=== PATIENT | female | born 1970 | race Caucasian/White ===

== ENCOUNTER 2016-06-25 06:26 | Observation (INO) | payer OTHER ==
[2016-06-12 11:00] VITALS: BMI 56.0
--- NOTE | 2016-06-12 11:40 | PAT Medication Instructions ---
Service Date Jun 12, 2016. Current Home Medication List Albuterol Soln (Proventil 0.083% 2.5MG/3ML), 2.5 MG INH Q4H PRN for Wheezing Albuterol Sulfate (Proair Hfa), 2 PUFFS INH Q4H PRN for Wheezing Aspirin (Aspirin 81), 81 MG PO NOON Azelastine Hcl-Fluticasone Pro (Dymista), 2 SPRY MORENO BID Cranberry-Vitamin C-Vitamin E (Cranberry), 8,400 MG PO NOON Docusate Sodium (Docusate Sodium), 100 MG PO QAM Ferrous Sulfate (Kp Ferrous Sulfate), 325 MG PO QPM Fexofenadine Hcl (Rosi), 180 MG PO HS Fluticasone Prop/Salmeterol (Advair Diskus 250-50 Mcg/Dose), 1 PUFFS INH BID Fluticasone Propionate (Nasal) (Flonase Allergy Relief), 2 SPRAY MORENO BID Ipratropium [place] (Nasal) (Atrovent Nasal [place]), 2 SPRY MORENO TID PRN for RUNNY NOSE Metformin HCl (Metformin HCl), 500 MG PO QAM Metoprolol Succ (Toprol Xl) (Toprol-Xl), 75 MG PO QAM Montelukast Sodium (Singulair), 10 MG PO HS Omeprazole (Omeprazole), 20 MG PO QAM Propafenone Hcl (Propafenone Hcl), 150 MG PO Q8H [Z Сергей], 1 TAB PO QAM Medication Instructions For Your Scheduled Surgery Aspirin (Aspirin 81), 81 MG PO NOON CHECK WITH DR RAHMAN FOR INSTRUCTIONS) Metoprolol Succ (Toprol Xl) (Toprol-Xl), 75 MG PO QAM (CHECK WITH DR RAHMAN FOR INSTRUCTIONS) Propafenone Hcl (Propafenone Hcl), 150 MG PO Q8H (CHECK WITH DR RAHMAN FOR INSTRUCTIONS) Z Сергей 1 TAB PO QAM (currently on for tooth abscess- will finish 06/14/16) - Hold the following medications 10 days prior to surgery: Cranberry-Vitamin C-Vitamin E (Cranberry), 8,400 MG PO NOON - Hold the following medications 48 hours prior to surgery: Metformin HCl (Metformin HCl), 500 MG PO QAM - Hold the following medications the morning of surgery: Docusate Sodium (Docusate Sodium), 100 MG PO QAM - Take the following medications the morning of surgery with a sip of water: Omeprazole (Omeprazole), 20 MG PO QAM Fluticasone Prop/Salmeterol (Advair Diskus 250-50 Mcg/Dose), 1 PUFFS INH BID Fluticasone Propionate (Nasal) (Flonase Allergy Relief), 2 SPRAY MORENO BID Ipratropium [place] (Nasal) (Atrovent Nasal [place]), 2 SPRY MORENO TID PRN for RUNNY NOSE Azelastine Hcl-Fluticasone Pro (Dymista), 2 SPRY MORENO BID Albuterol Soln (Proventil 0.083% 2.5MG/3ML), 2.5 MG INH Q4H PRN for Wheezing Albuterol Sulfate (Proair Hfa), 2 PUFFS INH Q4H PRN for Wheezing (BRING WITH YOU TO HOSPITAL ON DAY OF SURGERY) - Take the following medications as scheduled the night before surgery: Montelukast Sodium (Singulair), 10 MG PO HS Fluticasone Prop/Salmeterol (Advair Diskus 250-50 Mcg/Dose), 1 PUFFS INH BID Fluticasone Propionate (Nasal) (Flonase Allergy Relief), 2 SPRAY MORENO BID Ipratropium [place] (Nasal) (Atrovent Nasal [place]), 2 SPRY MORENO TID PRN for RUNNY NOSE Fexofenadine Hcl (Rosi), 180 MG PO HS Ferrous Sulfate (Kp Ferrous Sulfate), 325 MG PO QPM Azelastine Hcl-Fluticasone Pro (Dymista), 2 SPRY MORENO BID Albuterol Soln (Proventil 0.083% 2.5MG/3ML), 2.5 MG INH Q4H PRN for Wheezing Albuterol Sulfate (Proair Hfa), 2 PUFFS INH Q4H PRN for Wheezing If you have any questions please call us at [phone] or [phone] ( Maria Guadalupe) or [phone]
[2016-06-12 12:15] LABS: COMPLETE YES; EOS % 0.2 %; HEMATOCRIT 32.8 % (37-47); LYMPH % 33.8 %; LYMPH ABS # 1.54 K/uL (1.2-3.4); MEAN CELL VOLUME 80.8 fL (80-100); MEAN CORPUSCULAR HEMOGLOBIN 26.1 pg (25-34); MEAN CORPUSCULAR HGB CONC 32.3 g/dl (32-36); MEAN PLATELET VOLUME 9.1 fL (7.4-10.4); MONO % 5.9 %; NEUT % 60.1 %; PLATELET COUNT 213 K/uL (130-400); RED BLOOD COUNT 4.06 M/uL (4.2-5.4); WHITE BLOOD COUNT 4.56 K/uL (4.8-10.8)
[2016-06-12 12:37] LABS: BUN/CREATININE RATIO 12.5 (10-20); CALCIUM 8.4 mg/dl (8.5-10.1); CREATININE 0.71 mg/dl (0.60-1.20); POTASSIUM 3.9 mmol/L (3.5-5.1)
[~2016-06-25] VITALS: Ht 162.6 cm; Wt 153.2 kg
[~2016-06-25 06:26] MED LIST: ADVIN25050 INH; ALBU0.08 INH; ALBU1AER9 INH; ASPI-435 PO; AZEL30SP NAE; CRAN1CAP15 PO; DOCU100C31 PO; FERR1TAB13 PO; FEXO1TAB46 PO; FLUT0.15 NAE; GLC500 PO; IPRA0.037 NAE; LACTATED RINGER'S 1000ML 1,000 ML IV SCH; METO25TA3 PO; MONT1TAB3 PO; OMEP20TA PO; PROP150T PO; Z PAK PO
[2016-06-25] MEDS ORDERED: FEXO1TAB58 PO (06:53)
[2016-06-25 07:00] VITALS: BP 155/68; PULSE 81; TEMP 36.9; O2SAT 97; BMI 56.0
[2016-06-25] MEDS ORDERED: PROPOFOL IV EMULSION 10 MG/ML 100 ML VIAL IV ONE ×2 (07:31→11:23)
[2016-06-25] MEDS ORDERED: MIDAZOLAM HCL 1 MG/ML 2ML VIAL ONE ×2 (07:46)
[2016-06-25] MEDS ORDERED: FENTANYL CITRATE INJ 50 MCG/1 ML 2 ML VIAL ONE ×3 (07:46→10:44)
--- NOTE | 2016-06-25 08:16 | History & Physical Bridge Note ---
H&P Re-Evaluation Bridge Note: I have examined the patient, reviewed the History & Physical and in the interval since the performance of the History & Physical I have noted the following changes of clinical significance: After I saw pt in the office she called back to say she would like to proceed with EPS and possible ablation.
[2016-06-25] MEDS ORDERED: PROPOFOL IV EMULSION 10 MG/ML 20 ML VIAL IV ONE (09:19)
[2016-06-25] MEDS ORDERED: LIDOCAINE HCL 2% 2 ML VIAL (20MG/ML) ONE (09:19)
[2016-06-25] MEDS ORDERED: ISOPROTERENOL 200 MCG / 50ML D5W IV ONE (10:10)
[2016-06-25] MEDS ORDERED: HEPARIN SOD (PORCINE) 1000 UNIT/ML 10 ML VIAL ONE (10:42)
[2016-06-25] MEDS ORDERED: [UNRECOGNIZED DRUG - OTHER] PO SCH (12:15)
[2016-06-25] MEDS ORDERED: ALBUTEROL 0.083% NEBU SOLN 3 ML VIAL INH PRN (12:15)
[2016-06-25] MEDS ORDERED: IPRATROPIUM BROMIDE NASAL SPRAY 0.06% 15ML NAE PRN (12:15)
[2016-06-25] MEDS ORDERED: ALBUTEROL HFA 8 GM INHALER INH PRN (12:15)
[2016-06-25] MEDS ORDERED: ACETAMINOPHEN 325 MG TAB PO PRN (12:15)
[2016-06-25 13:01] VITALS: BP 122/84; PULSE 95; TEMP 36.5; O2SAT 95; Ht 162.6 cm; Wt 153.2 kg
[2016-06-25] MEDS ORDERED: EpHEDrine SULFATE INJ 50 MG/ML AMP IV PRN (13:15)
[2016-06-25] MEDS ORDERED: ATROPINE SULFATE 0.1 MG/ML 5ML SYR IV PRN (13:15)
--- NOTE | 2016-06-25 13:16 | Anesthesiology Progress Note ---
Anesthesia Post Op Note Date & Time Jun 25, 2016 at 13:17 Vital Signs Pain Intensity: 0.0 Vital Signs Past 12 Hours Date Time Temp Pulse Resp B/P Pulse Ox O2 Delivery O2 Flow Rate FiO2 06/25/16 13:01 36.5 95 16 122/84 95 Room Air 06/25/16 12:40 65 16 129/74 96 Nasal Cannula 2 06/25/16 12:20 65 16 124/78 96 Nasal Cannula 2 06/25/16 07:00 36.9 81 18 155/68 97 Room Air Notes Mental Status: alert / awake / arousable, participated in evaluation Pt Amnestic to Procedure: Yes Nausea / Vomiting: adequately controlled Pain: adequately controlled Airway Patency, RR, SpO2: stable & adequate BP & HR: stable & adequate Hydration State: stable & adequate Anesthetic Complications: no major complications apparent
[2016-06-25] MEDS ORDERED: ONDANSETRON INJ 2 MG/ML 2 ML VIAL ONE (13:24)
[2016-06-25] MEDS ORDERED: NURSING VERBAL MED ORDER ONE (13:30)
[2016-06-25] MEDS ORDERED: ONDANSETRON INJ 2 MG/ML 2 ML VIAL IV PRN (14:00)
[2016-06-25] MEDS: PROPAFENONE HCL 150 MG TAB PO SCH ×2 (15:08→22:57)
--- NOTE | 2016-06-25 15:55 | Discharge Instructions ---
Discharge Instructions Admission Reason for Admission: Atrial Flutter Discharge Discharge Diagnosis / Problem: atrial flutter Discharge Goals Goal(s): Improve function Activity Recommendations Activity Limitations: as noted below Lifting Limitations: no more than 10 pounds Shower/Bathe: tomorrow Driving or Machine Use: resume 1 day after discharge . Current Hospital Diet Patient's current hospital diet: AHA Diet (Heart Healthy) Discharge Diet Recommended Diet: AHA Diet (Heart Healthy) Procedures Procedures Performed: EPS, radiofrequency ablation of cavotricuspid isthmus Pending Studies Studies pending at discharge: no Medical Emergencies . Who to Call and When: Medical Emergencies: If at any time you feel your situation is an emergency, please call 911 immediately. . Non-Emergent Contact Non-Emergency issues call your: Accounts Payable Clerk . . "Provider Documentation" section prepared by Maria D Plummer. VTE Core Measure Inpt VTE Proph given/why not?: Other Anticoagulation, Treatment not indicated
--- NOTE | 2016-06-25 15:59 | Discharge Summary ---
Discharge Summary Admission Date: Jun 25, 2016 at 13:09 Discharge Date: Jun 26, 2016 Discharge Disposition: Home Principal Diagnosis: atrial flutter Secondary Diagnoses/Problems: pAF on Rythmol and ASA DM Obesity Asthma Procedures: eps, isoprel infusion, radiofrequency ablation of cavotricuspid isthmus, 3d mapping of cti and his bundle Medication Reconciliation Continued Medications: Albuterol Soln (Proventil 0.083% 2.5MG/3ML) Nebu 2.5 MG INH Q4H PRN for Wheezing, EA Albuterol Sulfate (Proair Hfa) 108 Mcg/ Aer 2 PUFFS INH Q4H PRN for Wheezing Aspirin (Aspirin 81) 81 Mg Tab 81 MG PO NOON Azelastine Hcl-Fluticasone Pro (Dymista) 1 Spr Spr 2 SPRY MORENO BID, GM Cranberry-Vitamin C-Vitamin E (Cranberry) 1 Cap Cap 8400 MG PO NOON Docusate Sodium (Docusate Sodium) 100 Mg Cap 100 MG PO QAM, CAP Ferrous Sulfate (Kp Ferrous Sulfate) 325 Mg Tab 325 MG PO QPM, TAB 3 Refills Fexofenadine Hcl (Rosi) 180 Mg Tab 180 MG PO HS, TAB Fexofenadine-Pseudoephedrine (Rosi-D 24 Hour Allergy) 1 Tab Tab 1 TAB PO DAILY for 30 Days, #30 TAB 2 Refills Fluticasone Prop/Salmeterol (Advair Diskus 250-50 Mcg/Dose) 14 Puff/1 Inhaler Aerp 1 PUFFS INH BID Fluticasone Propionate (Nasal) (Flonase Allergy Relief) 50 Mcg/Act Spr 2 SPRAY MORENO BID Ipratropium [place] (Nasal) (Atrovent Nasal [place]) 0.06 % Jayla 2 SPRY MORENO TID PRN for RUNNY NOSE, ML Metformin HCl (Metformin HCl) 500 Mg Tab 500 MG PO QAM Metoprolol Succ (Toprol Xl) (Toprol-Xl) 25 Mg Tabcr 75 MG PO QAM, #30 TAB Montelukast Sodium (Singulair) 10 Mg Tab 10 MG PO HS, TAB Omeprazole (Omeprazole) 20 Mg Tab 20 MG PO QAM, TAB Propafenone Hcl (Propafenone Hcl) 150 Mg Tab 150 MG PO Q8H Admission Information Physical Exam (per Admitting): aaox3, nad supple, no jvd nrl s1/s2 no murmur cta b/l no w/r/r soft nt/nd no edema b/l no focal deficits Hospital Course Pt admitted for elective EPS with possible ablation. She underwent procedure without any complications-had an empiric cavotricuspid isthmus ablation. She had an limited echocardiogram performed to assess for PFO as during catheter placement in the EP lab it appeared that anatomically there is one present-the TTE did not reveal any but significant PFO. She was discharged home. Total time spent on discharge = This includes examination of the patient, discharge planning, medication reconciliation, and communication with other providers. Discharge Instructions ACTIVITY RECOMMENDATIONS: It is common to feel weak and fatigue for a few days. * Do not drive or operate any motorized equipment for the next 1 day. * Limit stair usage (2 or 3 trips a day only) for the next three days. * Do not lift anything heavier than 10 pounds for the next seven days. * Do not engage in vigorous exercise or any sports for the next five days. * You may shower the day after your procedure, but do not immerse the area for three days. Cleanse the site gently with soap and water. SPECIAL CARE INSTRUCTIONS: * You may replace the pressure dressing or band-aid the morning after the procedure. * After your procedure, it is normal to have a small bruise or small lump at the site. Examine your site daily for any change in the bruise or lump, redness, swelling, drainage or numbness. Notify your doctor if any change. BLEEDING: * If there is a small amount of bleeding at the site, lie down and apply firm pressure with a clean cloth for ten minutes. When the bleeding stops, lie quietly keeping the procedure limb straight for six hours. Notify your doctor as soon as possible. * If the bleeding does not stop after ten minutes or if there is a large amount of bleeding or spurting, call 911 immediately. Continue to lie down and hold firm pressure until help arrives. SKIN IRRITATION: * You may experience some redness and/or swelling in the area where radiation was administered. If any skin irritation occurs, please contact your family physician. FOLLOW UP VISIT: Keep any scheduled doctor appointments.
[2016-06-25 16:00] VITALS: O2SAT 96
[2016-06-25 16:51] VITALS: BP 152/96; PULSE 92; TEMP 37; O2SAT 96
[2016-06-25 19:19] VITALS: BP 128/81; PULSE 84; TEMP 37; O2SAT 97
[2016-06-25 20:00] VITALS: O2SAT 97
[2016-06-25] MEDS: FLUTICASONE/SALMETEROL 250/50 (ADVAIR) 14 PUFF/1 INHALER INH SCH (20:16)
[2016-06-25] MEDS: FLUTICASONE PROPIONATE NA SPR 16 GM BTL NAE SCH (20:17)
[2016-06-25] MEDS ORDERED: MONTELUKAST SOD 10 MG TAB PO SCH (21:00)
[2016-06-25] MEDS ORDERED: FEXOFENADINE HCL 180 MG TAB PO SCH (21:00)
[2016-06-25] MEDS ORDERED: FERROUS SULFATE 325 MG TAB PO SCH (21:00)
[2016-06-26 00:01] VITALS: O2SAT 97
[2016-06-26 00:05] VITALS: BP 137/78; PULSE 87; TEMP 36.8; O2SAT 96
--- NOTE | 2016-06-26 01:43 | OPERATIVE REPORT ---
DATE OF OPERATION: 06/25/2016 PREOPERATIVE DIAGNOSIS: Supraventricular tachycardia, probably in atrial flutter with 2:1 conduction. POSTOPERATIVE DIAGNOSIS: Same. Probable patent foramen ovale. PROCEDURE: Electrophysiology study, isuprel drug challenge infusion, 3D mapping of the His bundle and the cavotricuspid isthmus, radiofrequency ablation of the cavotricuspid isthmus and cardioversion. SURGEON: Dr. Maria D Plummer. APPLICATIONS PACKAGER: None. ANESTHESIA: Monitored anesthetic care given via anesthesiology, a total of 2 mg of Versed, 300 mcg of fentanyl, 2500 mg of propofol, start time 9:03, end time 12:00. IV FLUIDS: 350 mL. BLOOD LOSS: Less than 5 mL. CONDITION: Stable. COMPLICATIONS: None. URINE OUTPUT: Not applicable. SPECIMENS: None. FINDINGS: See below. DRAINS: None. INDICATIONS: This is a 45-year-old female, who has a past medical history of paroxysmal atrial fibrillation, hypertension. She is on propafenone as well as some beta-moris, metoprolol, for her atrial fibrillation; however, she did end up in [facility] a few months ago, secondary to significant palpitations and found to be in an SVT, probably an atrial flutter, greater than a 2:1 conduction and was recommended an electrophysiology study. CONSENT: Consent was obtained prior to patient going into the electrophysiology lab. The patient was informed of risks, benefits and alternatives to the procedure. Risks include, but not limited to, sudden cardiac , cardiac arrhythmias, cerebrovascular accident, myocardial infarction, injury to the blood vessels, chamber of the heart or the [place] electrical system, where she would need a permanent pacemaker, bleeding and infection. The patient understood these risks and agreed to the procedure as planned. Informed consent was obtained. DESCRIPTION OF THE PROCEDURE: The patient was brought into the electrophysiology lab in a fasting state. She was connected to a continuous air sampling and monitoring. A timeout was performed to ensure patient's identity and procedure correctly. The patient was prepped and draped over the bilateral groins in a normal surgical standard fashion. She received monitored anesthetic care throughout the case for her comfort level, administered via anesthesiology. [place] precautions were maintained throughout the procedure. A 10 mL of 1% lidocaine, bupivacaine mixture were given in the bilateral groins. Using the modified Seldinger technique, venous access was obtained in the following manner: The left femoral vein had a 6-Namibian sheath followed by a Joseluis quad diagnostic catheter positioned into the right ventricular apex. A 7-Namibian sheath followed by a Cournand F quadripolar catheter positioned in the His bundle region. A 7-Namibian sheath followed by a Thomas polar Biosense DF curve coronary sinus catheter was initially thought to be positioned into the coronary sinus. However, it looks like it actually went through a PFO into the left atrium and inferior pulmonary vein; it was removed, but did induce an atrial flutter and then degenerated into atrial fibrillation when it was out in the pulmonary vein. Ultimately, I could not get it into the coronary sinus and so, we did not use the catheter and the catheter was exchanged and a Halo 20 Pole catheter was positioned into the right atrium. The right femoral vein: A 6-Namibian sheath with a Joseluis quadripolar catheter positioned in the high right atrium. First, a 6-Namibian sheath, which was later swapped out for an SR0 sheath followed by the SuncoreTouch Biosense DF curve 4 mm ThermoCool ablation catheter. Electrophysiology study was performed with the following findings: Sinus cycle length 632, AH 86 milliseconds, HV 58 milliseconds, ME interval was 156 milliseconds, QRS 78 milliseconds, QT 338 milliseconds. With a high right atrial burst pacing, the AV Wenckebach was found to be 260 milliseconds. With high right atrium extrastimuli, the atrial ERP was found to be 500/200 and 400/220 with the AV node ERP less than or equal to the atrial. With right ventricular extrastimuli, the right ventricular ERP was found to be 500/230 and 400/220. A flutter at a cycle length of 194 milliseconds was induced, but this was when the coronary sinus catheter was probably positioned out into the left atrium into the pulmonary vein and when we were pacing at 400/220 from the high right atrium, we induced an atrial flutter which quickly decelerated to an atrial fibrillation. We ultimately had to do a cardioversion at 200 joules to retain sinus rhythm and then, the Thomas polar coronary sinus catheter was just removed from the heart altogether and the Halo catheter was positioned into the high right atrium. Once the Halo was positioned, we did atrial burst pacing down to 200 and we did atrial extrastimuli doubles without a further inducible atrial flutter. So, Isuprel at 2 was started. Once we had an adequate Isuprel response, the electrophysiology study was done with the following findings: Sinus cycle length 508 milliseconds, AH 100 milliseconds, HV 40 milliseconds, AV Wenckebach was 240 milliseconds, we gave up to triples from the high right atrium as well as burst pacing from the high right atrium down to 200, but I was not able to induce any sustained flutter, but we did do an empiric cavotricuspid isthmus line, as it appeared that the patient did have some flutter. To set up for the empiric cavotricuspid isthmus line, the 6-Namibian sheath in the right femoral vein was swapped out for an SR0 and then the [employer] irrigated ablation catheter was positioned into the heart. We mapped the His bundle region and then the cavotricuspid isthmus with 3D mapping. Then, the ablation catheter was positioned on the cavotricuspid isthmus near the tricuspid valve and a series of radiofrequency ablations were given, 1 minute in duration each at [address] to the IVC. We then checked for a block by positioning the ablation catheter medial to our line, we paced medial from the ablation catheter and measured across to the lateral atrial wall, where the Halo catheter was positioned and the duration took was 124 milliseconds. Then, we paced laterally from the Halo catheter and measured it to the ablation catheter, which was medial to our line and the duration took 134 milliseconds. A post-ablation electrophysiology study was performed during our 30-minute waiting period with the following findings: Sinus cycle length of 682 milliseconds, AH 94 milliseconds, HV 66 milliseconds, ME interval 172 milliseconds, QRS 72 milliseconds and QT 338 milliseconds, AV Wenckebach 280 milliseconds. Atrial ERP was 400/220 and the AV node ERP was less than or equal to the atrial and right ventricular ERP was 400/230. After a 30-minute waiting period, we rechecked to see that we still had bidirectional block and again pacing from medial and measuring to the lateral, it took 124 milliseconds, pacing [id number] then took 134 milliseconds. All the catheters were removed from the heart and the sheaths were pulled manually and manual compression was used to establish hemostasis. CONCLUSION: 1. Successful bidirectional block of the cavotricuspid isthmus. A successful radiofrequency ablation with creation of bidirectional block over the cavotricuspid isthmus. 2. Normal AV jeb function. 3. Possible patent foramen ovale. PLAN: Monitor patient overnight, a 12-lead ECG. She is still to continue her propafenone and metoprolol, as she does have atrial fibrillation. We will get a limited echo with a bubble study to see if she really does have a PFO, as my assumption is I think she does. Continue aspirin. She should also continue the rest of her other home medicines and follow up in my [place] office in 1 month. I attest to the content of the Intraoperative Record and any orders documented therein. Any exceptio ns are noted below.
[2016-06-26 04:40] VITALS: BP 118/70; PULSE 90; TEMP 36.8; O2SAT 93
[2016-06-26] MEDS: PROPAFENONE HCL 150 MG TAB PO SCH ×2 (05:48→13:35)
[2016-06-26 08:07] VITALS: BP 136/80; PULSE 84; TEMP 36.9; O2SAT 94
[2016-06-26] MEDS: FLUTICASONE PROPIONATE NA SPR 16 GM BTL NAE SCH (08:22)
[2016-06-26] MEDS: FLUTICASONE/SALMETEROL 250/50 (ADVAIR) 14 PUFF/1 INHALER INH SCH (08:23)
[2016-06-26] MEDS ORDERED: DOCUSATE SODIUM 100 MG CAP PO SCH (09:00)
[2016-06-26] MEDS ORDERED: ASPIRIN 81 MG ECTAB PO SCH (09:00)
[2016-06-26] MEDS ORDERED: METFORMIN HCL 500 MG TAB PO SCH (09:00)
[2016-06-26] MEDS ORDERED: METOPROLOL SUCC 25MG EXT REL TAB PO SCH (09:00)
[2016-06-26] MEDS ORDERED: PANTOprazole SOD 40 MG TAB PO SCH (09:00)
[2016-06-26 11:48] VITALS: BP 128/79; PULSE 78; TEMP 36.7; O2SAT 95
--- NOTE | 2016-06-26 11:56 | ECHOCARDIOGRAM REPORT ---
*NOTICE TO RECEIVING REPUBLICAN AGENCY This information is strictly Confidential and protected under [place] law. [place] law prohibits you from making any further disclosure of this information unless further disclosure is expressly permitted by the written consent of the person to whom it pertains or is authorized by law. A general authorization for the release of medical or other information is not sufficient for this purpose. Hospital accepts no responsibility if the information is made available to any other person, INCLUDING THE PATIENT. Interpretation Summary * Name: JUS ABDUL Study Date: 06/26/2016 10:38 AM BP: 136/80 mmHg * Patient Location: C.2T\S\S242\S\2 HR: 80 * : 1970 (M/d/yyyy) Gender: Female Height: 65 in * Age: 45 yrs Ethnicity: CA Weight: 337 lb * Ordering Physician: Maria D Plummer * Referring Physician: Maria D Plummer D.O. * Performed By: Catarina Bowman RCS * * Reason For Study: LIMITED - ASSESS FOR PFO / BUBBLE STUDY * BSA: 2.5 m2 * -- Conclusions -- * The interatrial septum is intact with no evidence for an atrial septal defect. * Injection of contrast documented no interatrial shunt. Procedure Details * Limited views were obtained. * A saline contrast injection was performed to assess for cardiac shunting. * The injection was performed through an intravenous line in the right arm. * The attending nurse who injected the saline contrast was TYRESE SMITH [facility], RN. * A total of 30 cc of agitated saline was given. Left Ventricle * The left ventricle is borderline dilated. * There is normal left ventricular wall thickness. * Ejection Fraction = 50-55%. Right Ventricle * The right ventricle is grossly normal size. * The right ventricular systolic function is normal. Atria * The left atrial size is normal. * Right atrium not well visualized. * The interatrial septum is intact with no evidence for an atrial septal defect. * Injection of contrast documented no interatrial shunt. Mitral Valve * The mitral valve is grossly normal. Tricuspid Valve * The tricuspid valve is not well visualized, but is grossly normal. Aortic Valve * The aortic valve is normal in structure and function. Pulmonic Valve * The pulmonic valve is not well visualized. Pericardium/Pleural * There is no pericardial effusion. MMode 2D Measurements and Calculations IVSd 0.92 cm IVSs 1.3 cm LVIDd 5.4 cm LVIDs 3.9 cm LVPWd 1.2 cm LVPWs 1.3 cm IVS/LVPW 0.74 FS 27.5 % EDV(Teich) 140.1 ml ESV(Teich) 66.0 ml EF(Teich) 52.9 % EDV(cubed) 155.7 ml ESV(cubed) 59.4 ml EF(cubed) 61.9 % % IVS thick 46.3 % % LVPW thick 7.5 % LV mass(C)d 226.9 grams LV mass(C)dI 91.9 grams/m\S\2 LV mass(C)s 187.6 grams LV mass(C)sI 76.0 grams/m\S\2 SV(Teich) 74.1 ml SI(Teich) 30.0 ml/m\S\2 SV(cubed) 96.3 ml SI(cubed) 39.0 ml/m\S\2 LVOT diam 2.0 cm LVOT area 3.0 cm\S\2 LVAd ap4 34.0 cm\S\2 LVLd ap4 8.1 cm EDV(MOD-sp4) 119.2 ml EDV(sp4-el) 121.3 ml LVAs ap4 21.0 cm\S\2 LVLs ap4 6.5 cm ESV(MOD-sp4) 56.0 ml ESV(sp4-el) 57.2 ml EF(MOD-sp4) 53.0 % EF(sp4-el) 52.9 % LVAd ap2 29.6 cm\S\2 LVLd ap2 7.7 cm EDV(MOD-sp2) 98.4 ml EDV(sp2-el) 96.8 ml LVAs ap2 19.1 cm\S\2 LVLs ap2 6.6 cm ESV(MOD-sp2) 50.1 ml ESV(sp2-el) 46.7 ml EF(MOD-sp2) 49.1 % EF(sp2-el) 51.8 % LVLd %diff -5.02 % EDV(MOD-bp) 110.5 ml LVLs %diff 1.1 % ESV(MOD-bp) 52.1 ml EF(MOD-bp) 52.8 % SV(MOD-sp4) 63.3 ml SI(MOD-sp4) 25.6 ml/m\S\2 SV(MOD-sp2) 48.3 ml SI(MOD-sp2) 19.6 ml/m\S\2 SV(MOD-bp) 58.4 ml SI(MOD-bp) 23.6 ml/m\S\2 SV(sp4-el) 64.1 ml SI(sp4-el) 26.0 ml/m\S\2 SV(sp2-el) 50.1 ml SI(sp2-el) 20.3 ml/m\S\2
--- NOTE | 2016-06-26 13:21 | Cardiology Follow-Up ---
Subjective Subjective Date of Service: Jun 26, 2016. Pt evaluation today including: conversation w/ patient, physical exam, chart review, lab review, review of studies Pain: none Problem List Medical Problems: (1) Failure of outpatient treatment Status: Acute (2) Pyelonephritis Status: Acute Review of Systems Constitutional: No fatigue Respiratory: No dyspnea at rest, No shortness of breath Cardiac: No chest pain, No edema, No palpitations Abdomen: No diarrhea, No nausea Female : + urinary frequency Endo: No fatigue Objective Vital Signs Last Vital Signs Documentation Date Time Temp Pulse Resp B/P Pulse Ox O2 Delivery O2 Flow Rate FiO2 06/26/16 12:00 Room Air 06/26/16 11:48 36.7 78 18 128/79 95 06/25/16 12:40 2 Physical Exam: General Appearance: WD/WN, no apparent distress, + obese Eyes: bilateral eyes EOMI, bilateral eyes PERRL Neck: supple Respiratory/Chest: lungs clear, normal breath sounds Cardiovascular: regular rate, rhythm, no edema, no murmur Abdomen: soft (b/l groins soft no hematoma) Neurologic/Psychiatric: alert, normal mood/affect, oriented x 3 Skin: normal color, warm/dry, no rash Assessment and Plan Impression: 1. Atrial flutter s/p CTI ablation 06/25/2016 2. pAF on rhytmol and ASA [id number] 1 for female 3. Obesity 4. Recurrent UTI 5. Asthma Plan: -Ok for discharge home today -Echocardiogram did not reveal any PFO but could be limited study due to patient 's body habitus -Continue home medications -F/u in my office in 1 month Discharge planning: home Medications: Medications Administered Medications (Trade) Dose Ordered Sig/Filippo Route Start Time Stop Time Status Last Admin Dose Admin Lactated Ringer's (Lr 1000ml) 1,000 ml @ 15 mls/hr Q24H IV 06/25/16 06:00 06/26/16 05:59 DC 06/25/16 07:20 15 MLS/HR Isoproterenol HCl (Isoproterenol / D5W) 200 mcg STK-MED ONCE IV 06/25/16 10:10 06/25/16 10:11 DC 06/25/16 10:10 200 MCG Aspirin (Ecotrin Tab) 81 mg DAILY PO 06/26/16 09:00 07/26/16 08:59 06/26/16 08:24 81 MG Docusate Sodium (coLACE CAP) 100 mg QAM PO 06/26/16 09:00 07/26/16 08:59 06/26/16 08:22 100 MG Fexofenadine HCl (Rosi Tab) 180 mg HS PO 06/25/16 21:00 07/25/16 20:59 06/25/16 20:17 180 MG Salmeterol Xinafoate/ Fluticasone (Advair Diskus 250/50 Inh) 1 puff BID INH 06/25/16 21:00 07/25/16 20:59 06/26/16 08:23 1 PUFF Fluticasone Propionate (Flonase Nasal [place]) 1 sprays BID MORENO 06/25/16 21:00 07/25/16 20:59 06/26/16 08:22 1 SPRAYS Metformin HCl (Glucophage Tab) 500 mg QAM PO 06/26/16 09:00 07/26/16 08:59 06/26/16 08:24 500 MG Metoprolol Succinate (Toprol Xl Tab) 75 mg QAM PO 06/26/16 09:00 07/26/16 08:59 06/26/16 08:24 75 MG Montelukast Sodium (Singulair Tab) 10 mg HS PO 06/25/16 21:00 07/25/16 20:59 06/25/16 20:18 10 MG Propafenone HCl (Rythmol Tab) 150 mg Q8 PO 06/25/16 14:00 07/25/16 13:59 06/26/16 05:48 150 MG Ferrous Sulfate (Feosol Tab) 325 mg QPM PO 06/25/16 21:00 07/25/16 20:59 06/25/16 20:18 325 MG Pantoprazole Sodium (Protonix Tab) 40 mg QAM PO 06/26/16 09:00 07/26/16 08:59 06/26/16 08:22 40 MG Lab Results: Telemetry: SR/ST ECG: SR Echocardiogram: No PFO appreciated
[2016-06-26 13:27] VITALS: BP 128/79; PULSE 78; TEMP 36.7; O2SAT 95
== END 2016-06-26 13:59 | disposition home or self-care (01) ==
LOC: C.ACU 06:26 → C.2T 13:09
PROVIDERS: ADMIT Internal Medicine; ATTEND Internal Medicine
DX: I47.1 Supraventricular tachycardia (principal); I48.92 Unspecified atrial flutter; I10 Essential (primary) hypertension; J45.909 Unspecified asthma, uncomplicated; Z79.82 Long term (current) use of aspirin; Z80.1 Family history of malignant neoplasm of trachea, bronchus and lung; Z83.3 Family history of diabetes mellitus; Z82.49 Family history of ischemic heart disease and other diseases of the circulatory system